=== PATIENT | female | born 1960 | race American Indian/Alaskan Native ===

== ENCOUNTER 2018-07-22 05:07 | Emergency (ER) | payer SELFPAY ==
--- NOTE | 2018-07-22 07:50 | XRay Report ---
ROUTINE CHEST, TWO VIEWS: HISTORY: Shortness of breath. The trachea, heart, mediastinal contour, lung guerra and bony thorax are unremarkable. IMPRESSION: Unremarkable chest x-ray.
[2018-07-22] MEDS ORDERED: SOLU-Medrol IV ONE (08:20)
[2018-07-22] MEDS ORDERED: PROVENTIL IH ONE (08:21)
[2018-07-22 08:45] LABS: Basophils % (Auto) 0.5 % (0.0-1.8); Eosinophils % (Auto) 0.4 % (0.0-4.3); Hemoglobin 13.8 gm/dl (10.1-14.3); Lymphocytes # (Auto) 2.8 K/mm3 (1.2-5.4); Lymphocytes % (Auto) 28.5 % (13.4-35.0); Mean Corpuscular HGB Conc 35 % (30-34); Mean Corpuscular Volume 98 fl (79-97); Monocytes # (Auto) 0.8 K/mm3 (0.0-0.8); Monocytes % (Auto) 7.9 % (0.0-7.3); Platelet Count 230 K/mm3 (140-440); Red Blood Count 4.09 M/mm3 (3.65-5.03); Red Cell Distribution Width 14.4 % (13.2-15.2)
[2018-07-22 08:56] LABS: Alanine Aminotransferase 7 units/L (7-56); Albumin 4.1 g/dL (3.9-5); BUN/Creatinine Ratio 17; Blood Urea Nitrogen 15 mg/dL (7-17); Calcium 9.1 mg/dL (8.4-10.2); Hemolysis Index 12
--- NOTE | 2018-07-22 09:00 | Emergency Department Report ---
Minor Respiratory - HPI Chief Complaint: Dyspnea/Respdistress Stated Complaint: CHEST PAIN AND COUGH SX Time Seen by Provider: 07/22/18 07:39 Duration: 5 Days Pain Location: Chest Severity: mild Minor Respiratory: Yes Able to Tolerate Fluids, Yes Cough, No Rhinorrhea, No Sore Throat, No Ear Pain, No Sick Contacts, No Hemoptysis, No Chest Pain, No Shortness of Breath, No Fever Other History: Patient is a 57-year-old -[place] female who comes to the ER today complaining of several day history of cough and burning in her chest. She states that this is her typical asthma. She denies chest pain. She has also bilateral ear pain and sneezing. On admission her blood pressures elevated despite taking her blood pressure meds. However she is not tachycardic and has no fever. She is ambulatory and nontoxic. ED Review of Systems ROS: Stated complaint: CHEST PAIN AND COUGH SX Other details as noted in HPI Comment: All other systems reviewed and negative Constitutional: see HPI Eyes: as per HPI ENT: as per HPI, ear pain, throat pain Respiratory: see HPI, cough, wheezing Cardiovascular: as per HPI Endocrine: no symptoms reported Gastrointestinal: denies: abdominal pain Genitourinary: denies: urgency Skin: denies: rash Neurological: denies: headache Psychiatric: denies: anxiety Hematological/Lymphatic: denies: easy bleeding ED Past Medical Hx - Past Medical History Previous Medical History?: Yes Hx Hypertension: Yes Hx Pulmonary Embolism: Yes Hx Psychiatric Treatment: Yes (depression and anxiety) Hx Asthma: Yes Additional medical history: dvt's x3 - Surgical History Past Surgical History?: Yes Additional Surgical History: tubal ligation - Family History Family history: no significant - Social History Smoking Status: Current Some Day Smoker Substance Use Type: None - Medications Home Medications: Home Medications Medication Instructions Recorded Confirmed Last Taken Type Fluticasone [Flonase] 1 spray NS QDAY #1 bottle 07/22/18 Unknown Rx RX: Azithromycin [Zithromax Z-FLORENTIN] 250 mg PO DAILY #6 tablet 07/22/18 Unknown Rx methylPREDNISolone [Medrol] 4 mg PO DAILY #1 tab.ds.pk 07/22/18 Unknown Rx Minor Respiratory Exam - Exam General: Vital signs noted. No distress. Alert and acting appropriately. HEENT: Yes Pharyngeal Erythema, Yes Moist Mucous Membranes, No Pharyngeal Exudates, No Rhinorrhea, No Conjuctival Injection, No Frontal Tenderness, No Maxillary Tenderness Ear: Neither TM Bulge, Neither TM Erythema, Neither EAC Pain, Neither EAC Discharge Neck: Yes Supple, No Adenopathy Lungs: Yes Good Air Exchange, Yes Wheezes, Yes Cough, No Ronchi, No Stridor, No Labored Respirations, No Retractions, No Use of Accessory Muscles, No Other Abnormal Lung Sounds Heart: Yes Regular (no chest pain- only pain is with cough), No Murmur Abdomen: Yes Normal Bowel Sounds, No Tenderness, No Peritoneal Signs Skin: No Rash, No Edema Neurologic: Alert and oriented, no deficits. Musculoskeletal: Unremarkable. ED Course Vital Signs 07/22/18 05:19 Temperature 98.1 F Pulse Rate 71 Respiratory 20 Rate Blood Pressure 132/104 O2 Sat by Pulse 98 Oximetry ED Medical Decision Making - Lab Data Result diagrams: 07/22/18 08:24 07/22/18 08:27 - EKG Data -: EKG Interpreted by Me EKG shows normal: sinus rhythm Rate: normal - EKG Data When compared to previous EKG there are: no significant change Interpretation: no acute changes, normal EKG - Radiology Data Radiology results: report reviewed, image reviewed interpreted by me: no consolidation of pna - Medical Decision Making 12 lead nap, no rv strain xray neg for consolidation on home bp, hpld meds, and opal did not take bp meds because to er this am bp elevated neuro intact wo focal neuro def medicated with duoneb and felt better Vital Signs 07/22/18 07/22/18 05:19 09:41 Temperature 98.1 F Pulse Rate 71 68 Respiratory 20 20 Rate Blood Pressure 132/104 Blood Pressure 135/78 [135/78] O2 Sat by Pulse 98 98 Oximetry Labs 07/22/18 07/22/18 07/22/18 08:24 08:27 08:27 WBC 9.7 RBC 4.09 Hgb 13.8 Hct 40.0 MCV 98 H MCH 34 H MCHC 35 H RDW 14.4 Plt Count 230 Lymph % (Auto) 28.5 Sharkey % (Auto) 7.9 H Eos % (Auto) 0.4 Baso % (Auto) 0.5 Lymph # 2.8 Sharkey # 0.8 Eos # 0.0 Baso # 0.0 Seg Neutrophils % 62.7 Seg Neutrophils # 6.1 Sodium 138 Potassium 4.5 Chloride 102.3 Carbon Dioxide 25 Anion Gap 15 BUN 15 Creatinine 0.9 Estimated GFR > 60 BUN/Creatinine Ratio 17 Glucose 88 Calcium 9.1 Total Bilirubin 0.30 AST 13 ALT 7 Alkaline Phosphatase 82 Troponin T < 0.010 Total Protein 7.0 Albumin 4.1 Albumin/Globulin Ratio 1.4 - Differential Diagnosis urti- copd ae v flu Critical care attestation.: If time is entered above; I have spent that time in minutes in the direct care of this critically ill patient, excluding procedure time. ED Disposition Clinical Impression: URTI (acute upper respiratory infection), COPD (chronic obstructive pulmonary disease), COPD with acute exacerbation, Hypertension Disposition: TO HOME OR SELFCARE Is pt being admited?: No Does the pt Need Aspirin: No Condition: Stable Instructions: Chronic Obstructive Pulmonary Disease (ED), Hypertension (ED) Additional Instructions: REST HYDRATE WELL MEDS ORDERED TODAY TAKE BP MEDS WHEN YOU GET HOME INSTRUCTED DRINK A LOT OF WATER FOLLOW UP WITH PCP IN 48 HOURS IF NOT IMPROVING Prescriptions: RX: Azithromycin [Zithromax Z-FLORENTIN] 250 mg PO DAILY #6 tablet Fluticasone [Flonase] 1 spray NS QDAY #1 bottle methylPREDNISolone [Medrol] 4 mg PO DAILY #1 tab.ds.pk Referrals: PRIMARY CARE, [Primary Care Provider] - 3-5 Days MARICRUZ COBOS MD [Staff Physician] - 3-5 Days Time of Disposition: 09:15
[2018-07-22] MEDS ORDERED: SOLU-Medrol IM ONE (09:23)
[2018-07-22 09:43] VITALS: BP 135/78
== END 2018-07-22 09:39 | disposition home or self-care (01) ==
LOC: ED 05:07
DX: J06.9 Acute upper respiratory infection, unspecified (principal); J44.1 Chronic obstructive pulmonary disease with (acute) exacerbation; I10 Essential (primary) hypertension; F17.200 Nicotine dependence, unspecified, uncomplicated; Z91.010 Allergy to peanuts; Z88.2 Allergy status to sulfonamides; Z86.711 Personal history of pulmonary embolism; Z98.51 Tubal ligation status
CPT/HCPCS: 36415; 71046; 80053; 84484; 85025; 93005; 93010; 94640; 96372; 99284; J2930